=== PATIENT | female | born 1990 | race Caucasian/White ===

== ENCOUNTER 2021-07-28 00:37 | Emergency (ER) | payer BC ==
[2021-07-28 01:37] VITALS: BP 143/95; PULSE 90; TEMP 98.1; BMI 28.8
[2021-07-28] MEDS ORDERED: ERYTHROMYCIN 0.5% OPHTHALMIC OINTMENT 3.5 GM TUBE ONE (01:44)
[2021-07-28] MEDS ORDERED: TETRACAINE 0.5% OPHTH SOLN 2 ML BOTTLE ONE (01:44)
[2021-07-28] MEDS ORDERED: FLUORESCEIN NA 1 EA STRIP ONE (01:45)
== END 2021-07-28 02:12 | disposition home or self-care (01) ==
LOC: JER 00:37
DX: Y99.9 Unspecified external cause status (principal)
CPT/HCPCS: 99283-25